=== PATIENT | female | born 1950 | race Caucasian/White ===

== ENCOUNTER 2021-06-04 11:22 | Emergency (ER) | payer OTHER, MEDICARE ==
[~2021-06-04] VITALS: Ht 165.1 cm; Wt 89.4 kg
[2021-06-04] MEDS ORDERED: LOSARTAN POTAS100 MG PO (12:47)
[2021-06-04] MEDS ORDERED: METFORMIN HCL500 MG PO (12:47)
[2021-06-04] MEDS ORDERED: METOPROLOL TART50 MG PO (12:47)
[2021-06-04] MEDS ORDERED: CRESTOR10 MG PO (12:47)
[2021-06-04] MEDS ORDERED: TOVIAZ4 MG (12:47)
[2021-06-04] MEDS ORDERED: MAGNESIUM OXID400 MG PO (12:47)
[2021-06-04] MEDS ORDERED: MYRBETRIQ50 MG (12:47)
[2021-06-04] MEDS ORDERED: NEURONTIN300 MG PO (12:47)
== END 2021-06-04 14:23 | disposition home or self-care (01) ==
LOC: FSED 12:25
DX: S93.402A Sprain of unspecified ligament of left ankle, initial encounter (principal); W01.0XXA Fall on same level from slipping, tripping and stumbling without subsequent striking against object, initial encounter; Y93.01 Activity, walking, marching and hiking; Y92.008 Other place in unspecified non-institutional (private) residence as the place of occurrence of the external cause; E11.42 Type 2 diabetes mellitus with diabetic polyneuropathy; I10 Essential (primary) hypertension; E78.5 Hyperlipidemia, unspecified; Z96.651 Presence of right artificial knee joint; Z96.641 Presence of right artificial hip joint
CPT/HCPCS: 99283

== ENCOUNTER 2022-08-03 12:04 | Emergency (ER) | payer MEDICARE, OTHER ==
[~2022-08-03] VITALS: Ht 165.1 cm; Wt 85.3 kg
[~2022-08-03 12:04] MED LIST: CRESTOR10 MG PO; LOSARTAN POTAS100 MG PO; MAGNESIUM OXID400 MG PO; METFORMIN HCL500 MG PO; METOPROLOL TART50 MG PO; MYRBETRIQ50 MG; NEURONTIN300 MG PO; TOVIAZ4 MG
== END 2022-08-03 13:54 | disposition home or self-care (01) ==
LOC: FSED 12:08
DX: R07.9 Chest pain, unspecified (principal); I10 Essential (primary) hypertension; E78.5 Hyperlipidemia, unspecified; E11.42 Type 2 diabetes mellitus with diabetic polyneuropathy; Z88.5 Allergy status to narcotic agent
CPT/HCPCS: 80053; 82553; 84484; 85025; 93005; 99283

== ENCOUNTER 2023-02-28 09:49 | Emergency (ER) | payer MEDICARE, OTHER ==
[~2023-02-28] VITALS: Ht 165.1 cm; Wt 85.3 kg
== END 2023-02-28 11:05 | disposition home or self-care (01) ==
LOC: FSED 10:10
DX: S63.8X1A Sprain of other part of right wrist and hand, initial encounter (principal); W01.0XXA Fall on same level from slipping, tripping and stumbling without subsequent striking against object, initial encounter; Y92.89 Other specified places as the place of occurrence of the external cause; I10 Essential (primary) hypertension; E11.42 Type 2 diabetes mellitus with diabetic polyneuropathy; E78.5 Hyperlipidemia, unspecified; M85.88 Other specified disorders of bone density and structure, other site
CPT/HCPCS: 99283

== ENCOUNTER 2025-06-19 09:54 | Emergency (ER) | payer MEDICARE, OTHER ==
[~2025-06-19] VITALS: Ht 165.1 cm; Wt 81.2 kg
[2025-06-19 10:00] VITALS: PULSE 72; RESP 16; TEMP 99.2
[2025-06-19] MEDS ORDERED: PAXLOVID 300-11 EAC1 PO (11:13)
[2025-06-19 11:23] VITALS: BP 147/68; PULSE 72; RESP 17; TEMP 98.1; O2SAT 97
== END 2025-06-19 11:20 | disposition home or self-care (01) ==
LOC: FSED 10:07
DX: R05.9 Cough, unspecified (principal); U07.1 COVID-19; I10 Essential (primary) hypertension; E11.42 Type 2 diabetes mellitus with diabetic polyneuropathy; E78.5 Hyperlipidemia, unspecified
CPT/HCPCS: 0223U; 83518; 87400; 99284